=== PATIENT | male | born 1940 | race Caucasian/White ===

== ENCOUNTER 2017-04-06 09:34 | Inpatient (IN) | payer OTHER, MEDICARE ==
[2017-04-06] MEDS ORDERED: methylPREDNISolone SOD SUCCI 125 MG/2 ML VIAL IV STA (09:56)
[2017-04-06] MEDS ORDERED: IPRATROPIUM 0.5 MG/2.5 ML NEBU INHALATION STA (09:56)
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
[2017-04-06 10:54] LABS: Basophils # (A) 0.1 k/uL (0-0.2); Basophils % (A) 1 %; Eosinophils # (A) 0.1 k/uL (0-0.7); Eosinophils % (A) 1 %; HCT 49.8 % (39.0-53.0); HGB 16.1 gm/dL (13.0-17.5); Lymphocytes # (A) 1.5 k/uL (1.0-4.8); Lymphocytes % (A) 20 %; MCH 29.8 pg (25.0-35.0); MCHC 32.2 g/dL (31.0-37.0); MCV 92.3 fL (80.0-100.0); Mean Platelet Volume 9.8; Monocytes # (A) 0.7 k/uL (0-1.0); Monocytes % (A) 9 %; Neutrophils # (A) 4.9 k/uL (1.3-7.7); Neutrophils % (A) 67 %; RDW 13.3 % (11.5-15.5); WBC 7.3 k/uL (3.8-10.6)
[2017-04-06 11:07] LABS: INR 1.1 (<1.2); Partial Thromboplastin Time 22.4 sec (22.0-30.0); Prothrombin Time 10.8 sec (9.0-12.0)
[2017-04-06 11:12] LABS: ALT 31 U/L (21-72); AST 33 U/L (17-59); Albumin 4.3 g/dL (3.5-5.0); Alkaline Phosphatase 90 U/L (38-126); Anion Gap 14 mmol/L; Blood Urea Nitrogen 15 mg/dL (9-20); Carbon Dioxide 28 mmol/L (22-30); Chloride 100 mmol/L (98-107); Glucose 109 mg/dL (74-99); Potassium 4.9 mmol/L (3.5-5.1); Sodium 142 mmol/L (137-145); Total Bilirubin 0.5 mg/dL (0.2-1.3); Total Protein 7.6 g/dL (6.3-8.2)
--- NOTE | 2017-04-06 11:30 | XR ---
EXAMINATION TYPE: XR chest 1V portable DATE OF EXAM: 04/06/2017 HISTORY: sob. REFERENCE: NONE. FINDINGS: The lungs appear clear. The heart is at the upper limits of normal in size. There is eviden ce of right-sided pleural effusion which largely appears subpulmonic. IMPRESSION: RIGHT-SIDED SUBPULMONIC EFFUSION.
[2017-04-06 11:38] LABS: Creatine Kinase MB 2.3 ng/mL (0.0-2.4); Troponin I 0.018 ng/mL (0.000-0.034)
[2017-04-06] MEDS ORDERED: PNEUMONIA PROTOCOL UTILIZED 1 EACH MISC PO PRN (12:18)
[2017-04-06] MEDS ORDERED: PIPERACILLIN-TAZOBACTAM 3.375 GM in DEXTROSE/WATER 1 50ML.BAG IVPB STA (12:18)
[2017-04-06] MEDS ORDERED: LEVOFLOXACIN 750MG-D5W PMX 750 MG in DEXTROSE/WATER 1 150ML.BAG IVPB STA (12:18)
[2017-04-06] MEDS ORDERED: SODIUM CHLORIDE 0.9% 1,000 ML IV SCH (12:30)
[2017-04-06 15:26] VITALS: BMI 31.4
[2017-04-06] MEDS ORDERED: LORATADINE-PSEUDOEPH 5-120 MG 1 EACH TAB.ER.12H PO PRN (15:30)
[2017-04-06] MEDS ORDERED: ALPRAZolam 0.5 MG TAB PO PRN (15:30)
[2017-04-06] MEDS ORDERED: LOPERAMIDE 2 MG CAP PO PRN (15:30)
[2017-04-06] MEDS ORDERED: MAGNESIUM HYDROXIDE 2,400 MG/10 ML CUP PO PRN (15:30)
[2017-04-06] MEDS ORDERED: DIPHENOX-ATROP 2.5-0.025 MG 1 EACH TAB PO PRN (15:30)
[2017-04-06] MEDS ORDERED: IPRATROPIUM-ALBUTEROL 3 ML NEB INHALATION PRN (15:30)
[2017-04-06] MEDS ORDERED: guaiFENesin-DM 100-10MG/5ML 10 ML CUP PO PRN (15:30)
[2017-04-06] MEDS ORDERED: SENNOSIDES-DOCUSATE SODIUM 1 EACH TAB PO PRN (15:30)
[2017-04-06] MEDS ORDERED: ALBUTEROL NEBULIZED 2.5 MG/3 ML INHALATION PRN (15:30)
[2017-04-06] MEDS ORDERED: ACETAMINOPHEN TAB 325 MG TAB PO PRN (15:30)
[2017-04-06] MEDS: IPRATROPIUM-ALBUTEROL 3 ML NEB INHALATION SCH ×2 (15:53→20:36)
--- NOTE | 2017-04-06 16:53 | HP ---
HISTORY AND PHYSICAL CHIEF COMPLAINT: Shortness of breath and pneumonia. HISTORY OF PRESENT ILLNESS: This is another admission for this 76-year-old white male who is mentally incapacitated. He cannot give a history. He came in with congestion and it was felt that he probably had pneumonitis. Chest x-ray suggested a right subpulmonic effusion. He has significant wheezing, rhonchi and rales, and he may have aspirated. REVIEW OF SYSTEMS: Unobtainable. Past medical history, family history, and personal and social histories are similarly unobtainable. He is NOT ALLERGIC TO ANY MEDICATION. He takes: 1. Vitamin D. 2. Tylenol. 3. Xanax. 4. Budesonide-formotodine 160/4.5 two puffs b.i.d. 5. Albuterol. 6. Ipratropium bromide. 7. Various bowel medications, including Lomotil and milk of magnesia. 8. Phenobarbital. 9. Zocor. 10.Trazodone. PHYSICAL EXAMINATION: Temperature has not been obtained. Pulse is 89 and blood pressure is 157/69. Respirations are 22. In general he appeared to be slightly overweight and in some respiratory distress. Coarse rhonchi were heard. He had audible rhonchi in the room. Head, ears, eyes, nose, mouth and throat demonstrated a strabismus. There were no neck masses. Chest demonstrated complete rales, rhonchi and expiratory wheezing throughout. Cardiac exam demonstrated sinus rhythm and the abdomen was soft and protuberant. Extremities were normal. Neurologically he was not cognitively intact. IMPRESSION: 1. Bronchopneumonia. 2. Right pleural effusion. 3. Mental incapacitation. 4. ? seizure disorder. PLAN: 1. Bed rest. 2. IV fluids. 3. IV antibiotics. 4. Updrafts. 5. Pulmonology consult. MMODL / IJN: [id number] /
[2017-04-06] MEDS ORDERED: FUROSEMIDE 10 MG/ML 10 ML VIAL IV STA (20:29)
[2017-04-06] MEDS: ALBUTEROL NEBULIZED 2.5 MG/3 ML INHALATION SCH (20:36)
[2017-04-06] MEDS: SYMBICORT 160-4.5 MCG INHALER INHALATION SCH (20:36)
--- NOTE | 2017-04-06 20:49 | XR ---
EXAMINATION TYPE: XR chest 1V portable DATE OF EXAM: 04/06/2017 Comparison: Earlier today Clinical History: 76-year-old male with shortness of breath Findings: Heart upper limits of normal in size. Mild elongation thoracic aorta. Diffuse interstitial prominence and small right pleural effusion. Impression: 1. Possible mild CHF with pulmonary vascular congestion. 2. Small right effusion with adjacent atelectasis and/or consolidation. 3. Overall findings are unchanged.
[2017-04-06 22:04] LABS: Glucose,Whole Blood 163 mg/dL (75-99)
[2017-04-06] MEDS ORDERED: SCOPOLAMINE 1.5MG/72HR PATCH TRANSDERM SCH (22:30)
[2017-04-06 22:35] LABS: Basophils % (A) 0 %; Eosinophils # (A) 0.1 k/uL (0-0.7); Eosinophils % (A) 1 %; HCT 53.5 % (39.0-53.0); HGB 16.5 gm/dL (13.0-17.5); Lymphocytes # (A) 1.6 k/uL (1.0-4.8); Lymphocytes % (A) 10 %; MCHC 30.8 g/dL (31.0-37.0); MCV 94.1 fL (80.0-100.0); Mean Platelet Volume 7.8; Monocytes % (A) 6 %; Neutrophils # (A) 14.1 k/uL (1.3-7.7); Neutrophils % (A) 83 %; Platelet Count 245 k/uL (150-450); RBC 5.68 m/uL (4.30-5.90); RDW 13.2 % (11.5-15.5)
[2017-04-06 22:36] LABS: Anion Gap 17 mmol/L; Blood Urea Nitrogen 17 mg/dL (9-20); Carbon Dioxide 26 mmol/L (22-30); Chloride 98 mmol/L (98-107); Glucose 179 mg/dL (74-99); Magnesium 1.8 mg/dL (1.6-2.3); Potassium 4.3 mmol/L (3.5-5.1); Sodium 141 mmol/L (137-145)
[2017-04-06] MEDS: traZODone HCL 50 MG TAB PO SCH (22:38)
[2017-04-06] MEDS: ATORVASTATIN 20 MG TAB PO SCH (22:39)
[2017-04-06] MEDS: PHENobarbital 64.8 MG TAB PO SCH (22:53)
[2017-04-06] MEDS ORDERED: FUROSEMIDE 10 MG/ML 4 ML VIAL IV STA (23:56)
[2017-04-06] MEDS ORDERED: Magnesium Replacement Protocol 1 EACH MISC MISCELLANE PRN (23:57)
[2017-04-07] MEDS ORDERED: ACETAMINOPHEN IV (For NPO) 1,000 MG in EMPTY BAG 1 BAG IVPB SCH
[2017-04-07] MEDS ORDERED: ACETAMINOPHEN IV (For NPO) 1,000 MG in EMPTY BAG 1 BAG IVPB PRN (00:01)
[2017-04-07 00:08] LABS: Glucose,Whole Blood 137 mg/dL (75-99)
[2017-04-07] MEDS: MAGNESIUM SULFATE-D5W PMX 1 GM in DEXTROSE/WATER 1 100ML.BAG IVPB SCH ×2 (00:29→02:28)
[2017-04-07] MEDS: INSULIN ASPART 100 UNIT/ML 1 ML 10 ML VIAL SQ SCH ×5 (00:29→21:56)
[2017-04-07] MEDS: methylPREDNISolone SOD SUCCI 40 MG/ML 1 ML VIAL IV SCH ×3 (00:29→16:46)
[2017-04-07] MEDS: PIPERACILLIN-TAZOBACTAM 3.375 GM in DEXTROSE/WATER 1 50ML.BAG IVPB SCH ×3 (00:30→16:46)
[2017-04-07 05:25] LABS: Basophils % (A) 0 %; Eosinophils # (A) 0.1 k/uL (0-0.7); Eosinophils % (A) 1 %; HCT 49.9 % (39.0-53.0); HGB 15.6 gm/dL (13.0-17.5); Lymphocytes # (A) 1.3 k/uL (1.0-4.8); Lymphocytes % (A) 10 %; MCH 28.8 pg (25.0-35.0); MCHC 31.4 g/dL (31.0-37.0); Mean Platelet Volume 7.9; Monocytes # (A) 0.8 k/uL (0-1.0); Monocytes % (A) 6 %; Neutrophils # (A) 10.5 k/uL (1.3-7.7); Neutrophils % (A) 82 %; Platelet Count 193 k/uL (150-450); RBC 5.42 m/uL (4.30-5.90); RDW 13.2 % (11.5-15.5); WBC 12.8 k/uL (3.8-10.6)
[2017-04-07 05:37] LABS: Anion Gap 13 mmol/L; Blood Urea Nitrogen 19 mg/dL (9-20); Calcium 9.5 mg/dL (8.4-10.2); Carbon Dioxide 28 mmol/L (22-30); Chloride 97 mmol/L (98-107); Glucose 165 mg/dL (74-99); Magnesium 2.9 mg/dL (1.6-2.3); Potassium 4.3 mmol/L (3.5-5.1); Sodium 138 mmol/L (137-145)
[2017-04-07 06:09] LABS: Glucose,Whole Blood 138 mg/dL (75-99)
--- NOTE | 2017-04-07 06:38 | XR ---
EXAMINATION TYPE: XR chest 1V portable DATE OF EXAM: 04/07/2017 HISTORY: shortness of breath. REFERENCE: Previous study dated 04/06/2017. FINDINGS: Pulmonary vascular congestion has improved. Heart size is upper limits of normal. There is a small right-sided effusion with adjacent atelectasis. The left lung appears clear. IMPRESSION: MILD IMPROVEMENT IN THE DEGREE OF PULMONARY CONGESTION.
[2017-04-07] MEDS: IPRATROPIUM-ALBUTEROL 3 ML NEB INHALATION SCH ×4 (08:26→20:29)
[2017-04-07] MEDS: ALBUTEROL NEBULIZED 2.5 MG/3 ML INHALATION SCH ×2 (08:26→20:29)
[2017-04-07] MEDS: SYMBICORT 160-4.5 MCG INHALER INHALATION SCH ×2 (08:27→20:39)
[2017-04-07] MEDS: PANTOPRAZOLE 40 MG TABLET PO SCH (09:48)
[2017-04-07] MEDS: PHENobarbital 64.8 MG TAB PO SCH ×2 (09:57→22:33)
[2017-04-07] MEDS: SODIUM CHLORIDE 0.9% 500 ML IV SCH (10:49)
[2017-04-07] MEDS: FUROSEMIDE 10 MG/ML 2 ML VIAL IV SCH ×2 (10:49→21:56)
[2017-04-07 11:04] LABS: Appearance,Urine Turbid (Clear); Bacteria,Urine Rare /hpf; Bilirubin,Urine Negative (Negative); Blood,Urine Moderate (Negative); Budding Yeast,Urine Rare /hpf; Color,Urine Yellow; Glucose,Urine (UA) Negative (Negative); Ketones,Urine Negative (Negative); Leukocyte Esterase,Urine Small (Negative); Nitrite,Urine Negative (Negative); PH, Urine 5.5 (5.0-8.0); Protein,Urine 1+ (Negative); RBC,Urine 35 /hpf (0-5); Specific Gravity,Urine 1.027 (1.001-1.035); Urobilinogen,Urine <2.0 mg/dL (<2.0); WBC,Urine 19 /hpf (0-5)
[2017-04-07 11:38] LABS: Glucose,Whole Blood 129 mg/dL (75-99)
[2017-04-07] MEDS: LEVOFLOXACIN 750MG-D5W PMX 750 MG in DEXTROSE/WATER 1 150ML.BAG IVPB SCH (13:57)
[2017-04-07 16:53] LABS: Glucose,Whole Blood 105 mg/dL (75-99)
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
[2017-04-07 20:57] LABS: Glucose,Whole Blood 147 mg/dL (75-99)
[2017-04-07] MEDS: ATORVASTATIN 20 MG TAB PO SCH (21:56)
[2017-04-07] MEDS: traZODone HCL 50 MG TAB PO SCH (21:56)
[2017-04-08 06:50] LABS: Glucose,Whole Blood 117 mg/dL (75-99)
[2017-04-08] MEDS: INSULIN ASPART 100 UNIT/ML 1 ML 10 ML VIAL SQ SCH ×4 (07:25→21:14)
[2017-04-08] MEDS: IPRATROPIUM-ALBUTEROL 3 ML NEB INHALATION SCH ×4 (07:41→19:44)
[2017-04-08] MEDS: SYMBICORT 160-4.5 MCG INHALER INHALATION SCH ×2 (07:41→19:55)
[2017-04-08] MEDS: ALBUTEROL NEBULIZED 2.5 MG/3 ML INHALATION SCH ×3 (07:41→19:56)
[2017-04-08] MEDS: PIPERACILLIN-TAZOBACTAM 3.375 GM in DEXTROSE/WATER 1 50ML.BAG IVPB SCH ×4 (08:03→23:17)
[2017-04-08] MEDS: PANTOPRAZOLE 40 MG TABLET PO SCH (08:03)
[2017-04-08] MEDS: FUROSEMIDE 10 MG/ML 2 ML VIAL IV SCH (08:03)
[2017-04-08] MEDS: methylPREDNISolone SOD SUCCI 40 MG/ML 1 ML VIAL IV SCH ×2 (08:03)
[2017-04-08] MEDS: PHENobarbital 64.8 MG TAB PO SCH ×2 (08:08→21:16)
[2017-04-08 08:24] LABS: Basophils # (A) 0.1 k/uL (0-0.2); Basophils % (A) 1 %; Eosinophils % (A) 0 %; HCT 47.3 % (39.0-53.0); HGB 15.1 gm/dL (13.0-17.5); Lymphocytes # (A) 2.3 k/uL (1.0-4.8); Lymphocytes % (A) 23 %; MCH 29.4 pg (25.0-35.0); MCV 92.1 fL (80.0-100.0); Mean Platelet Volume 8.1; Monocytes # (A) 0.4 k/uL (0-1.0); Monocytes % (A) 5 %; Neutrophils # (A) 6.8 k/uL (1.3-7.7); Neutrophils % (A) 70 %; Platelet Count 212 k/uL (150-450); RBC 5.14 m/uL (4.30-5.90); RDW 13.2 % (11.5-15.5); WBC 9.8 k/uL (3.8-10.6)
[2017-04-08 08:54] LABS: Anion Gap 13 mmol/L; Blood Urea Nitrogen 26 mg/dL (9-20); Calcium 9.7 mg/dL (8.4-10.2); Carbon Dioxide 30 mmol/L (22-30); Chloride 95 mmol/L (98-107); Glucose 117 mg/dL (74-99); Magnesium 2.3 mg/dL (1.6-2.3); Potassium 4.2 mmol/L (3.5-5.1); Sodium 138 mmol/L (137-145)
--- NOTE | 2017-04-08 10:21 | XR ---
EXAMINATION TYPE: XR chest 1V portable DATE OF EXAM: 04/08/2017 Comparison: 04/07/2017 Clinical History: 76-year-old male shortness of breath Findings: Heart upper limits of normal in size. Atherosclerotic arch calcifications. There are small effusions with patchy bibasilar densities and interstitial prominence are Impression: 1. Relatively stable mild pulmonary vascular congestion. 2. Continued small effusions with patchy bibasilar atelectasis and/or consolidation.
[2017-04-08 11:57] LABS: Glucose,Whole Blood 116 mg/dL (75-99)
[2017-04-08] MEDS: LEVOFLOXACIN 750MG-D5W PMX 750 MG in DEXTROSE/WATER 1 150ML.BAG IVPB SCH (12:58)
[2017-04-08] MEDS: SODIUM CHLORIDE 0.9% 500 ML IV SCH (12:59)
--- NOTE | 2017-04-08 14:05 | P.PN ---
Subjective Progress Note Date: 04/08/17 Principal diagnosis: acute hypoxic rest or a failure, multifactorial, secondary to mild CHF, acute exacerbation of COPD, tracheobronchitis, pleural effusions, and aspiration pneumonia This is a 76-year-old white male with remote history of closed head injury, patient is mentally incapacitated, brought in by his caregiver complaining of few days' history of increased shortness of breath, cough, and congestion. The patient himself is a very poor historian, and he is definitely mentally challenged. Workup in the ER showed abnormal chest x-ray suggestive of right sided pleural effusion, and mild interstitial edema. Patient was admitted with the impression of pneumonia, however as he was admitted to the regular medical floor, shortly after, his condition deteriorated, patient was transferred to the ICU, received Lasix, and within a few hours his clinical status dramatically improved. His chest x-ray even improved, and by the time I evaluated the patient early this morning, he was feeling much better, and saturating nicely on few liters nasal cannula. The patient on diuretics, kept him on antibiotics, and recommended transferred back to a regular medical floor. The patient again could not give any history, but his caregiver is sitting next to him, and most of the information was obtained from her. His CBC was relatively unremarkable, basic metabolic profile was also normal. His urinalysis showed small amount of bacteriuria, hematuria, and bacteriuria. Influenza screening was negative. Troponin was 0.085 and BNP was 336. On 04/08/2017 patient seen in follow-up. Resting comfortably in bed, with his caregiver at the bedside. Patient is a poor historian, due to his history of closed head injury. He is awake, alert, there caregiver states he is been yelling out at times, which is his baseline and overall seems to be more responsive to interaction. his FiO2 is currently down to 5 L per high flow nasal cannula. a since last febrile episode was on 04/07/2017 at midnight with a temp of 100.9F, no febrile episodes since then. His other vitals remained stable.his urine, sputum and blood cultures remain negative.patient remains on Levaquin,Zosyn, IV Solu-Medrol, IV Lasix, nebulized treatments. His lung sounds are positive for scattered wheezes and rhonchi. His repeat chest x-ray from this morning shows relatively stable mild pulmonary vessel congestion, and continue small pleural effusions with patchy bibasilar atelectasis and/or consolidation. Objective - Vital Signs Vital signs: Vital Signs Temp 97.2 F L 04/08/17 06:39 Pulse 84 04/08/17 11:57 Resp 20 04/08/17 08:00 BP 106/64 04/08/17 06:39 Pulse Ox 93 L 04/08/17 06:39 Intake & Output 04/07/17 04/08/17 04/08/17 18:59 06:59 18:59 Intake Total 590 1441 Output Total 135 Balance 455 1441 Intake: IV 40 Sodium Chloride 0.9% 1, 40 000 ml @ 100 mls/hr IV . Q10H [facility] Rx#:[id number] Intake, IV Titration 70 Amount Piperacillin-Tazobactam 3 50 .375 gm In Dextrose/Water 1 50ml.bag @ 12.5 mls/hr IVPB Q8HR [facility] Rx#: [id number] Sodium Chloride 0.9% 500 20 ml @ 20 mls/hr IV .Q24H [facility] Rx#:[id number] Oral 480 1440 Blood Product 1 Output: Urine 135 Other: Voiding Method Diaper Diaper Diaper # Voids 2 3 4 - Exam General appearance: alert, in no apparent distress Head exam: Atraumatic, normocephalic all of the patient had previous closed head injury decades ago. Eye exam: PERRLA, EOMI, no icterus. ENT exam: Moist mucous membranes, no neck masses, no JVD, no stridor. Neck exam: No neck masses, no stridor, no lymphadenopathy Respiratory exam: scattered wheezes, and rhonchi Cardiovascular Exam: Normal S1 and S2, no gallops. GI/Abdominal exam: Soft nontender no megaly no rebound no guarding Extremities exam: No clubbing, no edema, no cyanosis. Back exam: Present: normal inspection Neurological exam: Patient is clearly mentally challenged, does not comprehend well, does not follow instructions, otherwise no gross focal deficit. Moves all extremities properly. Psychiatric exam: Normal mood and affect, abnormal mental status examination Skin exam: : No rashes. - Labs CBC & Chem 7: 04/08/17 07:36 04/08/17 07:36 Labs: Abnormal Lab Results - Last 24 Hours (Table) 04/07/17 04/07/17 04/08/17 Range/Units 16:44 20:56 06:39 Chloride (98-107) mmol/L BUN (9-20) mg/dL Glucose (74-99) mg/dL POC Glucose (mg/dL) 105 H 147 H 117 H (75-99) mg/dL 04/08/17 04/08/17 Range/Units 07:36 11:55 Chloride 95 L (98-107) mmol/L BUN 26 H (9-20) mg/dL Glucose 117 H (74-99) mg/dL POC Glucose (mg/dL) 116 H (75-99) mg/dL Microbiology - Last 24 Hours (Table) 04/07/17 01:30 Gram Stain - Preliminary Sputum Sputum Culture - Preliminary 04/07/17 10:16 Urine Culture - Preliminary Urine,Catheterized 04/06/17 10:42 Blood Culture - Preliminary Blood No Growth after 24 hours Assessment and Plan Plan: Assessment: 1 Acute hypoxic respiratory failure, multifactorial, secondary to mild congestive heart failure, acute exacerbation of COPD, purulent tracheobronchitis , bilateral pleural effusions, possibility of aspiration pneumonia is not entirely ruled out based on the clinical history. 2 multiple medical problems including history of closed head injury, seizure disorder, mental incapacitation. Recommendation: Continue diuretics, continue empiric antibiotics. Clinically patient is improving, FiO2 is being weaned down, is currently down to 5 L per high flow nasal cannula. Continue to wean. Patient is more awake, alert and more interactive. Diuresing well with diuretics. Fluid net balance is hard to estimate as the patient is incontinent of urine. Sputum, urine and blood cultures remain negative so far.continue IV steroids, continue nebulized treatments. We will continue to follow with you I performed a history & physical examination of the patient and discussed their management with my nurse practitioner, Kaylah De Jesus. I reviewed the nurse practitioner's note and agree with the documented findings and plan of care. Lung sounds are positive for scattered wheezes. The findings and the impression was discussed with the patient. I attest to the documentation by the nurse practitioner. Time with Patient: Less than 30
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
--- NOTE | 2017-04-08 14:35 | PN ---
PROGRESS NOTE DATE OF SERVICE: 04/07/2017. CHIEF COMPLAINT: Pneumonitis, sepsis, and aspiration. HISTORY OF PRESENT ILLNESS: This gentleman is definitely doing better. During the night the A team was called when he got into acute respiratory distress with tachycardia, cyanosis, and congestion. He responded to Lasix and updrafts and was doing somewhat better. He had been moved to ICU, but now is back. PHYSICAL EXAM: He remains very agitated. He is awake. He has extensive rales and rhonchi bilaterally, but he does sound a little bit better than he did 24 hours ago. IMPRESSION: 1. Aspiration pneumonia. 2. Mental incapacitation. 3. Probable sepsis. PLAN: Continue with the IV fluids, antibiotics and updrafts. MMODL / IJN: [id number] /
[2017-04-08 17:02] LABS: Glucose,Whole Blood 118 mg/dL (75-99)
[2017-04-08] MEDS: methylPREDNISolone 4 MG TAB TAPER PO SCH (17:03)
[2017-04-08] MEDS: FUROSEMIDE 20 MG TAB PO SCH (17:04)
--- NOTE | 2017-04-08 17:32 | PN ---
PROGRESS NOTE CHIEF COMPLAINT: Pneumonitis and mental incapacitation. HISTORY OF PRESENT ILLNESS: This gentleman remains very agitated. His chest is clearing. PHYSICAL EXAM: His chest definitely improved. There are fewer rales and rhonchi and he is fully awake and alert. His color is good. Cardiac exam is normal. IMPRESSION: 1. Bronchial pneumonia. 2. Aspiration. 3. Mental incapacitation. PLAN: Continue with current program. MMODL / IJN: [id number] /
[2017-04-08 20:29] LABS: Glucose,Whole Blood 140 mg/dL (75-99)
[2017-04-08] MEDS: ATORVASTATIN 20 MG TAB PO SCH (21:13)
[2017-04-08] MEDS: traZODone HCL 50 MG TAB PO SCH (21:14)
--- NOTE | 2017-04-08 23:15 | XR ---
EXAMINATION TYPE: XR chest 2V DATE OF EXAM: 04/08/2017 COMPARISON: 04/08/2017 HISTORY: 76-year-old male, follow-up pneumonia TECHNIQUE: AP and lateral views FINDINGS: Heart is borderline enlarged. Somewhat low volumes with crowded vascular markings. Peribronchial cuf fing and interstitial prominence is present throughout. Focal patchy posterior basilar opacity was se en on the lateral view. Some patchy medial right basilar opacity shows improvement from prior exam. IMPRESSION: 1. Improving aeration at the medial right base but with persistent opacity posteriorly. Residual atel ectasis or pneumonia is considered. 2. Interstitial prominence and bronchial wall thickening could represent background of bronchitis or chronic asthma. Correlate with patient's fluid status to exclude mild pulmonary vascular congestion. 3. Hypoventilatory changes.
[2017-04-09 07:03] LABS: Glucose,Whole Blood 96 mg/dL (75-99)
[2017-04-09 07:51] VITALS: RESP 18
[2017-04-09] MEDS: SYMBICORT 160-4.5 MCG INHALER INHALATION SCH (08:24)
[2017-04-09] MEDS: IPRATROPIUM-ALBUTEROL 3 ML NEB INHALATION SCH ×3 (08:25→15:16)
[2017-04-09] MEDS: INSULIN ASPART 100 UNIT/ML 1 ML 10 ML VIAL SQ SCH ×2 (08:58→12:13)
[2017-04-09] MEDS: PANTOPRAZOLE 40 MG TABLET PO SCH (08:59)
[2017-04-09] MEDS: PIPERACILLIN-TAZOBACTAM 3.375 GM in DEXTROSE/WATER 1 50ML.BAG IVPB SCH ×2 (09:00→16:16)
[2017-04-09] MEDS: FUROSEMIDE 20 MG TAB PO SCH (09:00)
[2017-04-09] MEDS: methylPREDNISolone 4 MG TAB TAPER PO SCH (09:00)
[2017-04-09] MEDS: PHENobarbital 64.8 MG TAB PO SCH (09:11)
[2017-04-09] MEDS: SODIUM CHLORIDE 0.9% 500 ML IV SCH (09:11)
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
--- NOTE | 2017-04-09 11:10 | ECHOF ---
Referral Reason:elevated troponin MEASUREMENTS -------- HEIGHT: 180.3 cm WEIGHT: 88.9 kg BP: 106/64 RVIDd: 3.9 cm (< 3.3) IVSd: 1.1 cm (0.6 - 1.1) LVIDd: 4.4 cm (3.9 - 5.3) LVPWd: 1.1 cm (0.6 - 1.1) IVSs: 1.5 cm LVIDs: 2.9 cm LVPWs: 1.4 cm RAP: 5.00 mmHg RVSP: 18.45 mmHg FINDINGS -------- Sinus rhythm. This was a technically difficult study with suboptimal views. The left ventricular size is normal. There is mild concentric left ventricular hypertrophy. Overa ll left ventricular systolic function is normal with, an EF between 55 - 60 %. The right ventricle is moderately enlarged. The global wall thickness of the right ventricle is mil dly enlarged. The left atrial size is normal. The right atrium is normal in size. 3ml of Lumason was utilized for enhancement of images. The aortic valve was not well visualized. There is no evidence of aortic regurgitation. There is no evidence of aortic stenosis. The mitral valve is normal. There is trace to mild mitral regurgitation. Trace tricuspid regurgitation present. Right ventricular systolic pressure is normal at < 35 mmHg. There is no evidence of pulmonary hypertension. The pulmonic valve was not well visualized. The aortic root size is normal. Normal inferior vena cava with normal inspiratory collapse consistent with estimated right atrial pre ssure of 5 mmHg. There is a small pericardial effusion is located near the right ventricle. CONCLUSIONS -------- 1. Sinus rhythm. 2. This was a technically difficult study with suboptimal views. 3. The left ventricular size is normal. 4. There is mild concentric left ventricular hypertrophy. 5. Overall left ventricular systolic function is normal with, an EF between 55 - 60 %. 6. The global wall thickness of the right ventricle is mildly enlarged. 7. The left atrial size is normal. 8. 3ml of Lumason was utilized for enhancement of images. 9. The aortic valve was not well visualized. 10. There is no evidence of aortic regurgitation. 11. There is no evidence of aortic stenosis. 12. There is trace to mild mitral regurgitation. 13. Trace tricuspid regurgitation present. 14. Right ventricular systolic pressure is normal at < 35 mmHg. 15. There is no evidence of pulmonary hypertension. 16. The pulmonic valve was not well visualized. 17. The aortic root size is normal. 18. There is a small pericardial effusion is located near the right ventricle. POLICY ADVISER: Santo García RDCS
[2017-04-09 12:11] LABS: Glucose,Whole Blood 130 mg/dL (75-99)
--- NOTE | 2017-04-09 13:31 | P.PN ---
Subjective Progress Note Date: 04/09/17 Principal diagnosis: acute hypoxic rest or a failure, multifactorial, secondary to mild CHF, acute exacerbation of COPD, tracheobronchitis, pleural effusions, and aspiration pneumonia This is a 76-year-old white male with remote history of closed head injury, patient is mentally incapacitated, brought in by his caregiver complaining of few days' history of increased shortness of breath, cough, and congestion. The patient himself is a very poor historian, and he is definitely mentally challenged. Workup in the ER showed abnormal chest x-ray suggestive of right sided pleural effusion, and mild interstitial edema. Patient was admitted with the impression of pneumonia, however as he was admitted to the regular medical floor, shortly after, his condition deteriorated, patient was transferred to the ICU, received Lasix, and within a few hours his clinical status dramatically improved. His chest x-ray even improved, and by the time I evaluated the patient early this morning, he was feeling much better, and saturating nicely on few liters nasal cannula. The patient on diuretics, kept him on antibiotics, and recommended transferred back to a regular medical floor. The patient again could not give any history, but his caregiver is sitting next to him, and most of the information was obtained from her. His CBC was relatively unremarkable, basic metabolic profile was also normal. His urinalysis showed small amount of bacteriuria, hematuria, and bacteriuria. Influenza screening was negative. Troponin was 0.085 and BNP was 336. On 04/08/2017 patient seen in follow-up. Resting comfortably in bed, with his caregiver at the bedside. Patient is a poor historian, due to his history of closed head injury. He is awake, alert, there caregiver states he is been yelling out at times, which is his baseline and overall seems to be more responsive to interaction. his FiO2 is currently down to 5 L per high flow nasal cannula. a since last febrile episode was on 04/07/2017 at midnight with a temp of 100.9F, no febrile episodes since then. His other vitals remained stable.his urine, sputum and blood cultures remain negative.patient remains on Levaquin,Zosyn, IV Solu-Medrol, IV Lasix, nebulized treatments. His lung sounds are positive for scattered wheezes and rhonchi. His repeat chest x-ray from this morning shows relatively stable mild pulmonary vessel congestion, and continue small pleural effusions with patchy bibasilar atelectasis and/or consolidation. On 04/09/2017 patient seen in follow-up. Patient's becoming restless, but in no acute distress, caregiver is at the bedside. Patient is removing his oxygen , was at 5 L per nasal cannula, room air pulse ox was 86%. He was placed on 2 L per nasal cannula. Continues on IV diuresis, fluid net balance is hard to estimate, patient is incontinent of urine. Lung sounds are positive for scattered wheezes, but this is improved compared to previous exams. Echocardiogram from 04/08/2017 showed normal left ventricular systolic function with EF of 55-60%, as no evidence of pulmonary hypertension, right ventricular systolic pressure is less than 35 mmHg. Patient remains afebrile, vital signs are within normal limits. Patient did pass his swallow evaluation at the bedside yesterday, however related to his impaired cognition, his caregiver states he requires close supervision to avoid him putting too much food in his mouth at one time. Patient continues on Zosyn, yesterday with switched his steroids to Medrol Dosepak, and switched his IV Lasix to oral Lasix. No other acute events overnight, from pulmonary standpoint patient could be discharged home back to the [facility] today, on oral Augmentin, Medrol Dosepak, and small dose of oral Lasix. Objective - Vital Signs Vital signs: Vital Signs Temp 98.8 F 04/09/17 07:00 Pulse 84 04/09/17 12:28 Resp 18 04/09/17 07:00 BP 121/80 04/09/17 07:00 Pulse Ox 91 L 04/09/17 12:12 Intake & Output 04/08/17 04/09/17 04/09/17 18:59 06:59 18:59 Intake Total 1920 Balance 192 Weight 89 kg Intake: Oral 1920 Blood Product 1 Other: Voiding Method Diaper Diaper # Voids 1 2 - Exam General appearance: alert, in no apparent distress Head exam: Atraumatic, normocephalic all of the patient had previous closed head injury decades ago. Eye exam: PERRLA, EOMI, no icterus. ENT exam: Moist mucous membranes, no neck masses, no JVD, no stridor. Neck exam: No neck masses, no stridor, no lymphadenopathy Respiratory exam: scattered wheezes, and rhonchi Cardiovascular Exam: Normal S1 and S2, no gallops. GI/Abdominal exam: Soft nontender no megaly no rebound no guarding Extremities exam: No clubbing, no edema, no cyanosis. Back exam: Present: normal inspection Neurological exam: Patient is clearly mentally challenged, does not comprehend well, does not follow instructions, otherwise no gross focal deficit. Moves all extremities properly. Psychiatric exam: Normal mood and affect, abnormal mental status examination Skin exam: : No rashes. - Labs CBC & Chem 7: 04/08/17 07:36 04/08/17 07:36 Labs: Abnormal Lab Results - Last 24 Hours (Table) 04/08/17 04/08/17 04/09/17 Range/Units 16:59 20:27 12:09 POC Glucose (mg/dL) 118 H 140 H 130 H (75-99) mg/dL Microbiology - Last 24 Hours (Table) 04/07/17 01:30 Gram Stain - Final Sputum Sputum Culture - Final 04/07/17 10:16 Urine Culture - Final Urine,Catheterized 04/06/17 10:42 Blood Culture - Preliminary Blood No Growth after 48 hours Assessment and Plan Plan: Assessment: 1 Acute hypoxic respiratory failure, multifactorial, secondary to mild congestive heart failure, acute exacerbation of COPD, purulent tracheobronchitis , bilateral pleural effusions, possibility of aspiration pneumonia is not entirely ruled out based on the clinical history. Improved, patient is currently down to 2 L per nasal cannula, after IV diuresis, nebulized treatments , and antibiotics 2 multiple medical problems including history of closed head injury, seizure disorder, mental incapacitation. Recommendation: Patient continues to improve, he did pass his swallow evaluation yesterday, however still requires close supervision during meals to avoid patient putting too much food in his mouth 1 time. Vital signs are stable, lung sounds are still positive for some rhonchi and scattered wheezing, overall however improved since admission. Patient did desaturate to 86% on room air, arrangements will be made for home oxygen, he will go home on 2 L per nasal cannula. From pulmonary standpoint he is stable for discharge back to the [facility] today, he will need a small dose of Lasix 20 mg daily on a regular basis, Medrol Dosepak, and Augmentin for 7 more days. I performed a history & physical examination of the patient and discussed their management with my nurse practitioner, Kaylah De Jesus. I reviewed the nurse practitioner's note and agree with the documented findings and plan of care. Lung sounds are positive for scattered wheezes and rhonchi. The findings and the impression was discussed with the patient. I attest to the documentation by the nurse practitioner. Time with Patient: Less than 30
[2017-04-09 15:56] VITALS: BP 111/66; PULSE 85; TEMP 97.2
[2017-04-09] MEDS: LEVOFLOXACIN 750MG-D5W PMX 750 MG in DEXTROSE/WATER 1 150ML.BAG IVPB SCH (16:16)
--- NOTE | 2017-04-09 21:48 | DS ---
DISCHARGE SUMMARY CHIEF COMPLAINT: Pneumonitis. HISTORY OF PRESENT ILLNESS AND PHYSICAL EXAM: The details of this man's history and physical can be found in the initial workup. LABORATORY STUDIES: While he was in a hospital he had laboratory studies, details of which can be found in the laboratory section of his chart. COURSE IN HOSPITAL: After admission, he was placed on bedrest, started on intravenous fluids and updrafts. In the middle of night, he probably aspirated and became tachypneic, cyanotic and tachycardic. A team was called and after updrafts and IV fluids, he started to turn the corner. He was sent to ICU, but then was able to return to the floor and did well enough that he got back to baseline and it was felt that he could go back to the [facility] on the . FINAL DIAGNOSES: 1. Aspiration pneumonia. 2. Acute hypoxic episode. 3. Mental incapacitation. OPERATIONS: None. CONSULTATIONS: None. He is improved. OMER / JOHN: [id number] /
--- NOTE | 2017-04-15 09:57 | CDI ---
Last Revision, January 2017 Documentation Clarification Form Date: 04/15/2017 9:43:00 AM From: Crissy Salguero Carol Ann Patino, Load Blocker between 8:30 am & 5 pm Memo Admit Date: 04/06/2017 12:18:00 PM Patient Name: Epi Flores Visit Number: [id number] Discharge Date: 04/09/17 ATTENTION: The Clinical Documentation Specialists (CDI) and [facility] Coding Staff appreciate your assistance in clarifying documentation. Please respond to the clarification below the line at the bottom and electronically sign. The CDI & [facility] Coding staff will review the response and follow-up if needed. Please note: Queries are made part of the Legal Health Record. If you have any questions, please contact the author of this message via ITS. Dr. Kim Vernon/Ning Perez Documentation in cardiology consult states: Mildly elevated troponin, secondary to a type II event History/Risk Factors: CHF, Abnormal: Troponin I on 04/06 - 0.085 Treatment: 2 D Echo In your professional opinion, can you please clarify if the type II event is: Type II ME Abnormal troponin Other, please specify Unable to determine Please continue to document in your progress notes and discharge summary in order to capture severity of illness and risk of mortality. Include clinical findings that support your diagnosis. MTDD
--- NOTE | 2017-04-15 09:58 | CDI ---
Last Revision, January 2017 Documentation Clarification Form Date: 04/15/2017 9:09:00 AM From: Crissy Salguero Carol Ann Patino, Environmental Issues Instructor between 8:30 am & 5 pm MRocky Admit Date: 04/06/2017 12:18:00 PM Patient Name: Epi Flores Visit Number: [id number] Discharge Date: 04/09/17 ATTENTION: The Clinical Documentation Specialists (CDI) and [facility] Coding Staff appreciate your assistance in clarifying documentation. Please respond to the clarification below the line at the bottom and electronically sign. The CDI & [facility] Coding staff will review the response and follow-up if needed. Please note: Queries are made part of the Legal Health Record. If you have any questions, please contact the author of this message via ITS. Dr. Josefina Stout/Ning Perez Patent admitted with aspiraton pneumonia. He was found to have mild CHF with pulmonary vascular congestion and small right pleural effusion (CXR 04/06) Upon deterioraton was transferred to ICU where hew was given IV Lasix 20 mg Q 12hr. BNP: 04/06- 289, 336 Echocardiogram Results: Left ventricular systolic function is nl, EF between 55- 60-% In your professional opinion, can you please clarify the acuity and type of CHF if known? Systolic Heart Failure: Acute Chronic Acute on Chronic Diastolic Heart Failure: Acute Chronic Acute on Chronic Systolic & Diastolic Heart Failure: Acute Chronic Acute on Chronic Heart Failure Unable to Determine Other, please specify Please continue to document in your progress notes and discharge summary in order to capture severity of illness and risk of mortality. Include clinical findings that support your diagnosis. This patient has no history of heart failure and was determined to not have been in heart failure during this admission. DARRELLD
== END 2017-04-09 16:58 | disposition home or self-care (01) | DRG 177 ==
LOC: EC 09:34 → 4MS4W 12:18 → 6ICU 21:43 → 4MS4W 04-07 11:32
PROVIDERS: ADMIT Family Medicine; ATTEND Family Medicine
DX: J69.0 Pneumonitis due to inhalation of food and vomit (principal); J96.01 Acute respiratory failure with hypoxia; A41.9 Sepsis, unspecified organism; J44.1 Chronic obstructive pulmonary disease with (acute) exacerbation; Z66 Do not resuscitate; G40.909 Epilepsy, unspecified, not intractable, without status epilepticus; K21.9 Gastro-esophageal reflux disease without esophagitis; E78.5 Hyperlipidemia, unspecified; R32 Unspecified urinary incontinence; Z79.51 Long term (current) use of inhaled steroids; Z79.899 Other long term (current) drug therapy; Z87.820 Personal history of traumatic brain injury; Z99.3 Dependence on wheelchair; Z87.891 Personal history of nicotine dependence
CPT/HCPCS: 36415; 71045; 71046; 80048; 80053; 81001; 82550; 82553; 83605; 83735; 83880; 84100; 84484; 85025; 85379; 85610; 85730; 87040; 87070; 87086; 87205; 87502; 93005; 93306; 94640; 96365; 96375; 99291

== ENCOUNTER → 2017-12-24 | Outpatient (CLI) | payer MEDICARE | END | disposition home or self-care (01) | LOC: RADCTMAIN 13:19 | PROVIDERS: ATTEND Internal Medicine Sleep Medicine | DX: Z53.9 Procedure and treatment not carried out, unspecified reason (principal) ==

== ENCOUNTER 2018-03-27 19:26 | Emergency (ER) | payer OTHER, MEDICARE ==
[2018-03-27 19:33] VITALS: BP 128/79; RESP 20; TEMP 97.7
[2018-03-27] MEDS ORDERED: IPRATROPIUM-ALBUTEROL 3 ML NEB INHALATION STA (19:56)
[2018-03-27 20:23] VITALS: PULSE 92
[2018-03-27 20:30] LABS: Appearance,Urine Clear (Clear); Bacteria,Urine Rare /hpf; Bilirubin,Urine Negative (Negative); Blood,Urine Small (Negative); Color,Urine Yellow; Glucose,Urine (UA) Negative (Negative); Ketones,Urine Negative (Negative); Leukocyte Esterase,Urine Large (Negative); Mucus,Urine Rare /hpf; Nitrite,Urine Negative (Negative); Protein,Urine Negative (Negative); RBC,Urine 46 /hpf (0-5); Specific Gravity,Urine 1.016 (1.001-1.035); Squamous Epithelial Cell,Urine <1 /hpf (0-4); Urobilinogen,Urine <2.0 mg/dL (<2.0)
--- NOTE | 2018-03-27 20:41 | XR ---
EXAMINATION TYPE: XR chest 1V DATE OF EXAM: 03/27/2018 COMPARISON: 04/08/2017 HISTORY: Dehydration. Dysuria. TECHNIQUE: Single frontal view of the chest is obtained. FINDINGS: There is patchy atelectasis at the lung bases. Heart size is normal. There is no heart malik lure. There is poor inspiration. IMPRESSION: Atelectasis at the lung bases increased compared to last exam.
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
== END 2018-03-27 21:14 | disposition home or self-care (01) ==
LOC: EC 19:26
DX: R33.9 Retention of urine, unspecified (principal); R05 Cough; R09.89 Other specified symptoms and signs involving the circulatory and respiratory systems; K21.9 Gastro-esophageal reflux disease without esophagitis; J44.9 Chronic obstructive pulmonary disease, unspecified; E78.5 Hyperlipidemia, unspecified; Z79.51 Long term (current) use of inhaled steroids; Z79.899 Other long term (current) drug therapy; Z87.891 Personal history of nicotine dependence
CPT/HCPCS: 51702; 51798; 71045; 81001; 87077; 87086; 87186; 94640; 99284

== ENCOUNTER 2018-10-15 19:57 | Inpatient (IN) | payer MEDICARE ==
--- NOTE | 2018-10-15 20:36 | XR ---
EXAMINATION TYPE: XR chest 1V portable DATE OF EXAM: 10/15/2018 COMPARISON: 03/27/2018 INDICATION: Shortness of breath TECHNIQUE: Single frontal view of the chest is obtained. FINDINGS: The heart size is normal. The pulmonary vasculature is normal. Elevation of the right diaphragm laterally. A small pleural effusion may be present. Atelectasis may be present. IMPRESSION: 1. Elevation of the lateral right diaphragm which may be related to atelectasis and effusion. Follow- up is recommended.
[2018-10-15 20:43] LABS: Basophils # (A) 0.1 k/uL (0-0.2); Basophils % (A) 1 %; Eosinophils # (A) 0.3 k/uL (0-0.7); Eosinophils % (A) 2 %; HCT 48.9 % (39.0-53.0); HGB 16.1 gm/dL (13.0-17.5); Lymphocytes # (A) 2.8 k/uL (1.0-4.8); Lymphocytes % (A) 16 %; MCH 31.1 pg (25.0-35.0); MCHC 32.9 g/dL (31.0-37.0); MCV 94.5 fL (80.0-100.0); Monocytes # (A) 0.9 k/uL (0-1.0); Monocytes % (A) 5 %; Neutrophils # (A) 12.9 k/uL (1.3-7.7); Neutrophils % (A) 75 %; Platelet Count 264 k/uL (150-450); RBC 5.18 m/uL (4.30-5.90); RDW 13.4 % (11.5-15.5); WBC 17.1 k/uL (3.8-10.6)
[2018-10-15 20:48] LABS: ALT 28 U/L (21-72); AST 25 U/L (17-59); African American GFR (CKD) >90 (>60 ml/min/1.73 sqM); Albumin 4.8 g/dL (3.5-5.0); Alkaline Phosphatase 96 U/L (38-126); Anion Gap 14 mmol/L; Blood Urea Nitrogen 19 mg/dL (9-20); Calcium 9.8 mg/dL (8.4-10.2); Carbon Dioxide 26 mmol/L (22-30); Chloride 101 mmol/L (98-107); Glucose 137 mg/dL (74-99); Potassium 4.4 mmol/L (3.5-5.1); Sodium 141 mmol/L (137-145); Total Bilirubin 0.4 mg/dL (0.2-1.3); Total Protein 8.3 g/dL (6.3-8.2)
[2018-10-15] MEDS ORDERED: diphenhydrAMINE 50 MG/ML 1 ML VIAL IVP STA (20:51)
[2018-10-15 20:53] LABS: Partial Thromboplastin Time 27.1 sec (22.0-30.0); Prothrombin Time 10.3 sec (9.0-12.0)
[2018-10-15] MEDS ORDERED: LEVOFLOXACIN 750MG-D5W PMX 750 MG in DEXTROSE/WATER 1 150ML.BAG IVPB STA (21:24)
[2018-10-15] MEDS ORDERED: VANCOMYCIN 1,000 MG in SODIUM CHLORIDE 0.9% 250 ML IVPB STA (21:24)
[2018-10-15] MEDS ORDERED: VANCOMYCIN 1,500 MG in SODIUM CHLORIDE 0.9% 250 ML IVPB STA (21:35)
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
[2018-10-15] MEDS ORDERED: NALOXONE 0.4 MG/ML 1 ML VIAL IV PRN (22:28)
[2018-10-15] MEDS ORDERED: guaiFENesin-DM 100-10MG/5ML 10 ML CUP PO PRN (22:32)
[2018-10-15] MEDS ORDERED: LORATADINE-PSEUDOEPH 5-120 MG 1 EACH TAB.ER.12H PO PRN (22:32)
[2018-10-15] MEDS ORDERED: ACETAMINOPHEN TAB 325 MG TAB PO PRN (22:32)
[2018-10-15 23:27] LABS: Appearance,Urine Clear (Clear); Bilirubin,Urine Negative (Negative); Blood,Urine Negative (Negative); Color,Urine Yellow; Glucose,Urine (UA) Negative (Negative); Ketones,Urine Negative (Negative); Leukocyte Esterase,Urine Negative (Negative); Nitrite,Urine Negative (Negative); PH, Urine 5.5 (5.0-8.0); Protein,Urine Trace (Negative); Specific Gravity,Urine 1.027 (1.001-1.035); Urobilinogen,Urine <2.0 mg/dL (<2.0)
[2018-10-16 00:45] VITALS: BMI 33.7
[2018-10-16] MEDS: PHENobarbital 64.8 MG TAB PO SCH ×3 (00:54→20:19)
[2018-10-16] MEDS: PANTOPRAZOLE 40 MG TABLET PO SCH (06:54)
[2018-10-16] MEDS: BUDESONIDE 0.5 MG/2 ML NEBU INHALATION SCH ×2 (09:33→20:55)
[2018-10-16] MEDS: FUROSEMIDE 40 MG TAB PO SCH (09:57)
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
[2018-10-16 10:15] LABS: African American GFR (CKD) >90 (>60 ml/min/1.73 sqM); Albumin 3.8 g/dL (3.5-5.0); Anion Gap 8 mmol/L; Blood Urea Nitrogen 17 mg/dL (9-20); Calcium 9.4 mg/dL (8.4-10.2); Carbon Dioxide 28 mmol/L (22-30); Chloride 103 mmol/L (98-107); Glucose 107 mg/dL (74-99); Sodium 139 mmol/L (137-145); Total Bilirubin 0.8 mg/dL (0.2-1.3); Total Protein 6.9 g/dL (6.3-8.2)
[2018-10-16 10:17] LABS: ALT 24 U/L (21-72); AST 23 U/L (17-59); Alkaline Phosphatase 57 U/L (38-126); Potassium 4.6 mmol/L (3.5-5.1)
[2018-10-16 10:57] LABS: Basophils # (A) 0.1 k/uL (0-0.2); Basophils % (A) 1 %; Eosinophils # (A) 0.1 k/uL (0-0.7); Eosinophils % (A) 0 %; HCT 44.8 % (39.0-53.0); HGB 14.8 gm/dL (13.0-17.5); Lymphocytes # (A) 2.3 k/uL (1.0-4.8); Lymphocytes % (A) 9 %; MCH 31.1 pg (25.0-35.0); MCHC 33.1 g/dL (31.0-37.0); MCV 94.1 fL (80.0-100.0); Mean Platelet Volume 8.7; Monocytes # (A) 1.5 k/uL (0-1.0); Monocytes % (A) 6 %; Neutrophils # (A) 21.9 k/uL (1.3-7.7); Neutrophils % (A) 84 %; Platelet Count 210 k/uL (150-450); RBC 4.76 m/uL (4.30-5.90); RDW 14.2 % (11.5-15.5)
[2018-10-16] MEDS ORDERED: VANCOMYCIN 1,500 MG in SODIUM CHLORIDE 0.9% 250 ML IVPB SCH (11:00)
--- NOTE | 2018-10-16 14:50 | CDI ---
Documentation Clarification Form Date: 10/16/2018 2:16:32 PM From: Rowan Neff RN, CCDS Admit Date: 10/15/2018 10:17:00 PM Patient Name: Epi Flores Visit Number: [id number] Discharge Date: ATTENTION: The Clinical Documentation Specialists (CDI) and [facility] Coding Staff appreciate your assistance in clarifying documentation. Please respond to the clarification below the line at the bottom and electronically sign. The CDI & [facility] Coding staff will review the response and follow-up if needed. Please note: Queries are made part of the Legal Health Record. If you have any questions, please contact the author of this message via ITS. Dr. Stephanie Trotter The patient presented with shortness of breath. 10/16/18 in your consultation abnormal troponin, not consistent with acute coronary syndrome, likely secondary to oxygen supply and demand mismatch with no evidence of NV and further clarification is needs. History/Risk Factors: COPD, Heart failure, Seizure Disorder, Closed head injury Mental capacity of , Former smoker Clinical Indicators: 77-year-old who present with progressively more short of breath throughout the day with increased respirations and increased sputum production. ECF found his oxygen saturation in the 60s with blue lips. He was placed on a nonrebreather. Lab findings: Troponin 0.012, 0.038, 0.031 Noted: normal ECHO last year EF 55-60 % Chest CX: Elevation of right diaphragm which may be related to atelectasis and effusion Vital Signs: 158/95 107 36 97.9 99 % BiPAP Treatment: Monitor O2 Sats (titrate) Pulmicort Inhalations Monitor Labs: CBC, Lytes, Troponin IV Vanco PTD In your professional opinion, can you please further clarify oxygen supply and demand mismatch: Type 2 NV due to oxygen supply and demand mismatch Other Acute ischemic heart disease Other, please specify No NV but evidence of mismatch. Unable to determine (Last Revision: May 2017) MTDD
[2018-10-16] MEDS ORDERED: ALBUTEROL NEBULIZED 2.5 MG/3 ML INHALATION PRN (17:59)
[2018-10-16] MEDS: ATORVASTATIN 20 MG TAB PO SCH (20:19)
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
[2018-10-16] MEDS: traZODone HCL 50 MG TAB PO SCH (20:20)
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
[2018-10-16] MEDS: methylPREDNISolone SOD SUCCI 40 MG/ML 1 ML VIAL IV SCH (23:07)
[2018-10-16] MEDS: CEFDINIR 300 MG CAP PO SCH (23:07)
[2018-10-16] MEDS: BUDESONIDE 1 MG/2 ML NEBU INHALATION SCH (23:39)
[2018-10-16] MEDS: IPRATROPIUM-ALBUTEROL 3 ML NEB INHALATION SCH ×2 (23:39→23:45)
[2018-10-17] MEDS: INSULIN ASPART (NovoLOG) 100 UNIT/ML VIAL SQ SCH ×4 (08:09→20:53)
[2018-10-17] MEDS: PANTOPRAZOLE 40 MG TABLET PO SCH (08:55)
[2018-10-17] MEDS: CEFDINIR 300 MG CAP PO SCH ×2 (08:55→20:53)
[2018-10-17] MEDS: FUROSEMIDE 40 MG TAB PO SCH (08:55)
[2018-10-17] MEDS: methylPREDNISolone SOD SUCCI 40 MG/ML 1 ML VIAL IV SCH ×3 (08:56→23:29)
[2018-10-17] MEDS ORDERED: PHENobarbital 32.4 MG TAB PO SCH (09:00)
[2018-10-17] MEDS: BUDESONIDE 1 MG/2 ML NEBU INHALATION SCH ×2 (09:20→19:45)
[2018-10-17] MEDS: IPRATROPIUM-ALBUTEROL 3 ML NEB INHALATION SCH ×6 (09:20→23:21)
[2018-10-17] MEDS: BUDESONIDE 0.5 MG/2 ML NEBU INHALATION SCH ×2 (09:21→19:46)
--- NOTE | 2018-10-17 11:45 | CDI ---
Documentation Clarification Form Date: 10/16/2018 2:16:00 PM From: Rowan Neff RN, CCDS Admit Date: 10/15/2018 10:17:00 PM Patient Name: Epi Flores Visit Number: [id number] Discharge Date: ATTENTION: The Clinical Documentation Specialists (CDI) and [facility] Coding Staff appreciate your assistance in clarifying documentation. Please respond to the clarification below the line at the bottom and electronically sign. The CDI & [facility] Coding staff will review the response and follow-up if needed. Please note: Queries are made part of the Legal Health Record. If you have any questions, please contact the author of this message via ITS. Dr. Stephanie Trotter The patient presented with shortness of breath. 10/16/18 in your consultation abnormal troponin, not consistent with acute coronary syndrome, likely secondary to oxygen supply and demand mismatch with no evidence of VT and further clarification is needs. History/Risk Factors: COPD, Heart failure, Seizure Disorder, Closed head injury, Mental capacity of infant, Former smoker Clinical Indicators: 77-year-old who present with progressively more short of breath throughout the day with increased respirations and increased sputum production. ECF found his oxygen saturation in the 60s with blue lips. He was placed on a nonrebreather. Lab findings: Troponin 0.012, 0.038, 0.031 Noted: normal ECHO last year EF 55-60 % Chest CX: Elevation of right diaphragm which may be related to atelectasis and effusion Vital Signs: 158/95 107 36 97.9 99 % BiPAP Treatment: Monitor O2 Sats (titrate) Pulmicort Inhalations Monitor Labs: CBC, Lytes, Troponin IV Vanco PTD In your professional opinion, can you please further clarify oxygen supply and demand mismatch: XXXX due to oxygen supply and demand mismatch Other Acute ischemic heart disease Other, please specify Unable to determine (Last Revision: May 2017) MTDD
[2018-10-17] MEDS: guaiFENesin 600 MG TABLET.ER PO SCH ×2 (12:17→20:53)
[2018-10-17 12:23] LABS: Glucose,Whole Blood 114 mg/dL (75-99)
[2018-10-17 17:29] LABS: Glucose,Whole Blood 107 mg/dL (75-99)
[2018-10-17 19:43] LABS: Glucose,Whole Blood 122 mg/dL (75-99)
[2018-10-17] MEDS: traZODone HCL 50 MG TAB PO SCH (20:53)
[2018-10-17] MEDS: ATORVASTATIN 20 MG TAB PO SCH (20:53)
[2018-10-17] MEDS: PHENobarbital 64.8 MG TAB PO SCH (20:53)
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
[2018-10-18] MEDS: IPRATROPIUM-ALBUTEROL 3 ML NEB INHALATION SCH ×6 (03:21→23:38)
[2018-10-18 07:12] LABS: Glucose,Whole Blood 121 mg/dL (75-99)
[2018-10-18] MEDS: INSULIN ASPART (NovoLOG) 100 UNIT/ML VIAL SQ SCH ×4 (07:33→20:29)
[2018-10-18] MEDS: guaiFENesin 600 MG TABLET.ER PO SCH ×2 (07:47→20:27)
[2018-10-18] MEDS: PHENobarbital 64.8 MG TAB PO SCH ×2 (07:47→20:27)
[2018-10-18] MEDS: FUROSEMIDE 40 MG TAB PO SCH (07:48)
[2018-10-18] MEDS: PANTOPRAZOLE 40 MG TABLET PO SCH (07:48)
[2018-10-18] MEDS: methylPREDNISolone SOD SUCCI 40 MG/ML 1 ML VIAL IV SCH ×2 (07:48→16:47)
[2018-10-18] MEDS: CEFDINIR 300 MG CAP PO SCH ×2 (07:48→20:27)
[2018-10-18] MEDS: BUDESONIDE 1 MG/2 ML NEBU INHALATION SCH ×2 (09:05→20:15)
[2018-10-18 10:31] LABS: Glucose,Whole Blood 143 mg/dL (75-99)
[2018-10-18 16:40] LABS: Glucose,Whole Blood 103 mg/dL (75-99)
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
[2018-10-18 20:10] LABS: Glucose,Whole Blood 124 mg/dL (75-99)
[2018-10-18] MEDS: traZODone HCL 50 MG TAB PO SCH (20:27)
[2018-10-18] MEDS: ATORVASTATIN 20 MG TAB PO SCH (20:27)
[2018-10-19] MEDS: methylPREDNISolone SOD SUCCI 40 MG/ML 1 ML VIAL IV SCH ×2 (00:01→07:51)
[2018-10-19] MEDS: IPRATROPIUM-ALBUTEROL 3 ML NEB INHALATION SCH ×4 (04:03→16:05)
[2018-10-19 07:25] LABS: Glucose,Whole Blood 111 mg/dL (75-99)
[2018-10-19] MEDS: BUDESONIDE 1 MG/2 ML NEBU INHALATION SCH (07:37)
[2018-10-19] MEDS: INSULIN ASPART (NovoLOG) 100 UNIT/ML VIAL SQ SCH ×2 (07:49→12:44)
[2018-10-19] MEDS: guaiFENesin 600 MG TABLET.ER PO SCH (07:51)
[2018-10-19] MEDS: FUROSEMIDE 40 MG TAB PO SCH (07:51)
[2018-10-19] MEDS: CEFDINIR 300 MG CAP PO SCH (07:52)
[2018-10-19] MEDS: PANTOPRAZOLE 40 MG TABLET PO SCH (07:54)
[2018-10-19] MEDS: PHENobarbital 64.8 MG TAB PO SCH (07:54)
[2018-10-19 12:02] LABS: Glucose,Whole Blood 84 mg/dL (75-99)
[2018-10-19 12:16] VITALS: RESP 17
[2018-10-19 13:43] VITALS: BP 120/66; PULSE 79; TEMP 97.8
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
--- NOTE | 2018-10-28 07:39 | CDI ---
Documentation Clarification Form Date: 10/16/2018 2:16:00 PM From: Rowan Neff RN, CCDS Admit Date: 10/15/2018 10:17:00 PM Patient Name: Epi Flores Visit Number: [id number] Discharge Date: 10/19/2018 4:12:00 PM ATTENTION: The Clinical Documentation Specialists (CDI) and [facility] Coding Staff appreciate your assistance in clarifying documentation. Please respond to the clarification below the line at the bottom and electronically sign. The CDI & [facility] Coding staff will review the response and follow-up if needed. Please note: Queries are made part of the Legal Health Record. If you have any questions, please contact the author of this message via ITS. Dr. Stephanie Trotter The patient presented with shortness of breath. 10/16/18 in your consultation abnormal troponin, not consistent with acute coronary syndrome, likely secondary to oxygen supply and demand mismatch with no evidence of OK and further clarification is needs. History/Risk Factors: COPD, Heart failure, Seizure Disorder, Closed head injury Mental capacity of infant, Former smoker Clinical Indicators: 77-year-old who present with progressively more short of breath throughout the day with increased respirations and increased sputum production. ECF found his oxygen saturation in the 60s with blue lips. He was placed on a nonrebreather. Lab findings: Troponin 0.012, 0.038, 0.031 Noted: normal ECHO last year EF 55-60 % Chest CX: Elevation of right diaphragm which may be related to atelectasis and effusion Vital Signs: 158/95 107 36 97.9 99 % BiPAP Treatment: Monitor O2 Sats (titrate) Pulmicort Inhalations Monitor Labs: CBC, Lytes, Troponin IV Vanco PTD In your professional opinion, can you please further clarify oxygen supply and demand mismatch: XXX Type 2 OK due to oxygen supply and demand mismatch Other Acute ischemic heart disease Other, please specify Unable to determine (Last Revision: May 2017) MTDD
== END 2018-10-19 16:12 | DRG 189 ==
LOC: EC 19:57 → 3SCARD 22:17 → 3NMEDONC 10-17 06:28
PROVIDERS: ADMIT Hospitalist; ATTEND Hospitalist
PROC: 5A09457 Assistance with Respiratory Ventilation, 24-96 Consecutive Hours, Continuous Positive Airway Pressure (ICD-10-PCS; principal; 2018-10-15)
DX: J96.21 Acute and chronic respiratory failure with hypoxia (principal); I21.A1 Myocardial infarction type 2; J44.0 Chronic obstructive pulmonary disease with (acute) lower respiratory infection; I50.32 Chronic diastolic (congestive) heart failure; J44.1 Chronic obstructive pulmonary disease with (acute) exacerbation; E78.5 Hyperlipidemia, unspecified; F03.90 Unspecified dementia, unspecified severity, without behavioral disturbance, psychotic disturbance, mood disturbance, and anxiety; F79 Unspecified intellectual disabilities; G40.909 Epilepsy, unspecified, not intractable, without status epilepticus; Z66 Do not resuscitate; K21.9 Gastro-esophageal reflux disease without esophagitis; R47.1 Dysarthria and anarthria; Z99.81 Dependence on supplemental oxygen; Z79.4 Long term (current) use of insulin; Z86.718 Personal history of other venous thrombosis and embolism; Z79.899 Other long term (current) drug therapy; Z87.891 Personal history of nicotine dependence; Z99.3 Dependence on wheelchair; Z99.89 Dependence on other enabling machines and devices; Z87.820 Personal history of traumatic brain injury
CPT/HCPCS: 36415; 51702; 71045; 80053; 80184; 81003; 83605; 83880; 84484; 85025; 85610; 85730; 87040; 93005; 94640; 94660; 96365; 96366; 96368; 96375; 99285

== ENCOUNTER 2018-11-08 10:33 | Emergency (ER) | payer MEDICARE ==
[2018-11-08 10:40] VITALS: RESP 18
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
[2018-11-08 12:06] LABS: Appearance,Urine Clear (Clear); Bacteria,Urine Rare /hpf; Bilirubin,Urine Negative (Negative); Blood,Urine Large (Negative); Color,Urine Yellow; Glucose,Urine (UA) Negative (Negative); Ketones,Urine Negative (Negative); Leukocyte Esterase,Urine Small (Negative); Mucus,Urine Rare /hpf; Nitrite,Urine Negative (Negative); Protein,Urine Negative (Negative); RBC,Urine >182 /hpf (0-5); Specific Gravity,Urine 1.013 (1.001-1.035); Squamous Epithelial Cell,Urine <1 /hpf (0-4); Urobilinogen,Urine <2.0 mg/dL (<2.0)
[2018-11-08 12:37] VITALS: BP 100/78; PULSE 98; TEMP 98
== END 2018-11-08 12:35 | disposition home or self-care (01) ==
LOC: EC 10:33
DX: R33.9 Retention of urine, unspecified (principal); J44.9 Chronic obstructive pulmonary disease, unspecified; I50.9 Heart failure, unspecified; E78.5 Hyperlipidemia, unspecified; K21.9 Gastro-esophageal reflux disease without esophagitis; G40.909 Epilepsy, unspecified, not intractable, without status epilepticus; Z87.891 Personal history of nicotine dependence; Z79.51 Long term (current) use of inhaled steroids; Z79.899 Other long term (current) drug therapy; Z99.3 Dependence on wheelchair
CPT/HCPCS: 51701; 81001; 99284

== ENCOUNTER 2018-11-13 12:03 | Emergency (ER) | payer OTHER, MEDICARE ==
[2018-11-13 12:24] VITALS: BP 106/61; PULSE 110; RESP 20; TEMP 97.9
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
== END 2018-11-13 13:41 | disposition home or self-care (01) ==
LOC: EC 12:03
DX: R33.9 Retention of urine, unspecified (principal); I50.9 Heart failure, unspecified; J44.9 Chronic obstructive pulmonary disease, unspecified; E78.5 Hyperlipidemia, unspecified; G40.909 Epilepsy, unspecified, not intractable, without status epilepticus; K21.9 Gastro-esophageal reflux disease without esophagitis; Z87.891 Personal history of nicotine dependence; Z79.51 Long term (current) use of inhaled steroids; Z79.899 Other long term (current) drug therapy
CPT/HCPCS: 99284

== ENCOUNTER 2019-01-03 19:44 | Inpatient (IN) | payer MEDICARE ==
[2019-01-03] MEDS ORDERED: ACETAMINOPHEN TAB 500 MG TAB PO STA (19:59)
[2019-01-03] MEDS ORDERED: IBUPROFEN 600 MG TAB PO STA (19:59)
[2019-01-03] MEDS ORDERED: SODIUM CHLORIDE 0.9% 1,000 ML IV STA (19:59)
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
[2019-01-03 21:21] LABS: Basophils # (A) 0.1 k/uL (0-0.2); Basophils % (A) 1 %; Eosinophils # (A) 0.2 k/uL (0-0.7); Eosinophils % (A) 1 %; HCT 38.5 % (39.0-53.0); Lymphocytes # (A) 2.1 k/uL (1.0-4.8); Lymphocytes % (A) 11 %; MCH 31.2 pg (25.0-35.0); MCHC 33.8 g/dL (31.0-37.0); MCV 92.3 fL (80.0-100.0); Mean Platelet Volume 7.7; Monocytes # (A) 1.2 k/uL (0-1.0); Monocytes % (A) 6 %; Neutrophils # (A) 16.4 k/uL (1.3-7.7); Neutrophils % (A) 81 %; Platelet Count 251 k/uL (150-450); RBC 4.17 m/uL (4.30-5.90); WBC 20.2 k/uL (3.8-10.6)
--- NOTE | 2019-01-03 21:51 | XR ---
EXAMINATION TYPE: XR chest 2V DATE OF EXAM: 01/03/2019 COMPARISON: 10/15/2018 HISTORY: Fever TECHNIQUE: Frontal and lateral views of the chest are obtained. FINDINGS: There is some patchy atelectasis right lung base. There is mild blunting right costophreni c angle. There is no heart failure. Heart size is normal. IMPRESSION: There is infiltrate and atelectasis right lung base with pleural fluid not significantly different than last exam. No heart failure.
[2019-01-03 22:26] LABS: ALT 30 U/L (21-72); AST 21 U/L (17-59); African American GFR (CKD) >90 (>60 ml/min/1.73 sqM); Albumin 3.3 g/dL (3.5-5.0); Alkaline Phosphatase 72 U/L (38-126); Anion Gap 8 mmol/L; Blood Urea Nitrogen 12 mg/dL (9-20); Calcium 8.7 mg/dL (8.4-10.2); Carbon Dioxide 25 mmol/L (22-30); Chloride 101 mmol/L (98-107); Glucose 105 mg/dL (74-99); Non-African American GFR(CKD) 88 (>60 ml/min/1.73 sqM); Sodium 134 mmol/L (137-145); Total Bilirubin 0.5 mg/dL (0.2-1.3)
[2019-01-03 22:27] LABS: Appearance,Urine Cloudy (Clear); Bacteria,Urine Moderate /hpf; Bilirubin,Urine Negative (Negative); Blood,Urine Small (Negative); Color,Urine Yellow; Glucose,Urine (UA) Negative (Negative); Ketones,Urine Negative (Negative); Leukocyte Esterase,Urine Large (Negative); Mucus,Urine Many /hpf; Nitrite,Urine Negative (Negative); Protein,Urine 1+ (Negative); RBC,Urine 5 /hpf (0-5); Specific Gravity,Urine 1.023 (1.001-1.035); Squamous Epithelial Cell,Urine 3 /hpf (0-4); WBC,Urine >182 /hpf (0-5)
[2019-01-03] MEDS: SODIUM CHLORIDE 0.9% 500 ML 500 ML IV SCH (23:48)
[2019-01-04 00:34] VITALS: BMI 27.8
[2019-01-04] MEDS ORDERED: FUROSEMIDE 10 MG/ML 4 ML VIAL IV STA (02:02)
[2019-01-04] MEDS: SODIUM CHLORIDE 0.9% 500 ML 500 ML IV SCH (02:03)
[2019-01-04] MEDS: ENOXAPARIN 40 MG/0.4 ML SYRINGE SQ SCH (08:19)
[2019-01-04] MEDS ORDERED: LORATADINE 10 MG TAB PO PRN (11:03)
[2019-01-04] MEDS ORDERED: ACETAMINOPHEN TAB 325 MG TAB PO PRN (11:03)
[2019-01-04] MEDS ORDERED: DIPHENOX-ATROP 2.5-0.025 MG 1 EACH TAB PO PRN (11:03)
[2019-01-04] MEDS ORDERED: guaiFENesin-DM 100-10MG/5ML 10 ML CUP PO PRN (11:03)
[2019-01-04] MEDS ORDERED: diphenhydrAMINE 25 MG CAP PO PRN (11:03)
[2019-01-04] MEDS ORDERED: BISMUTH SUBSALICYLATE 4,192 MG/240 ML BOTTLE PO PRN (11:03)
[2019-01-04] MEDS: BUDESONIDE 0.5 MG/2 ML NEBU INHALATION SCH ×2 (12:07→21:22)
[2019-01-04] MEDS: ALBUTEROL NEBULIZED 2.5 MG/3 ML INHALATION SCH ×3 (12:07→21:22)
[2019-01-04] MEDS: FOLIC ACID 1 MG TAB PO SCH (12:34)
[2019-01-04] MEDS: PHENobarbital 64.8 MG TAB PO SCH ×2 (12:35→20:21)
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
[2019-01-04] MEDS: TAMSULOSIN 0.4 MG CAP.ER.24H PO SCH (20:21)
[2019-01-04] MEDS: traZODone HCL 50 MG TAB PO SCH (20:21)
[2019-01-04] MEDS: SENNOSIDES-DOCUSATE SODIUM 1 EACH TAB PO SCH (20:21)
[2019-01-04] MEDS: MONTELUKAST 10 MG TAB PO SCH (20:21)
[2019-01-04] MEDS: ATORVASTATIN 20 MG TAB PO SCH (20:21)
[2019-01-05] MEDS: BUDESONIDE 0.5 MG/2 ML NEBU INHALATION SCH ×2 (07:56→20:23)
[2019-01-05] MEDS: ALBUTEROL NEBULIZED 2.5 MG/3 ML INHALATION SCH ×3 (07:56→20:23)
[2019-01-05] MEDS: CYANOCOBALAMIN 500 MCG TAB PO SCH (08:31)
[2019-01-05] MEDS: FUROSEMIDE 40 MG TAB PO SCH (08:31)
[2019-01-05] MEDS: ENOXAPARIN 40 MG/0.4 ML SYRINGE SQ SCH (08:31)
[2019-01-05] MEDS: PANTOPRAZOLE 40 MG TABLET PO SCH (08:31)
[2019-01-05] MEDS: PHENobarbital 64.8 MG TAB PO SCH ×2 (08:31→20:55)
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
[2019-01-05] MEDS: FOLIC ACID 1 MG TAB PO SCH (11:51)
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
[2019-01-05] MEDS: SENNOSIDES-DOCUSATE SODIUM 1 EACH TAB PO SCH (20:55)
[2019-01-05] MEDS: traZODone HCL 50 MG TAB PO SCH (20:55)
[2019-01-05] MEDS: guaiFENesin 600 MG TABLET.ER PO SCH (20:55)
[2019-01-05] MEDS: ATORVASTATIN 20 MG TAB PO SCH (20:55)
[2019-01-05] MEDS: TAMSULOSIN 0.4 MG CAP.ER.24H PO SCH (20:55)
[2019-01-05] MEDS: MONTELUKAST 10 MG TAB PO SCH (20:55)
[2019-01-06] MEDS: CYANOCOBALAMIN 500 MCG TAB PO SCH (08:33)
[2019-01-06] MEDS: FUROSEMIDE 40 MG TAB PO SCH (08:33)
[2019-01-06] MEDS: PANTOPRAZOLE 40 MG TABLET PO SCH (08:34)
[2019-01-06] MEDS: PHENobarbital 64.8 MG TAB PO SCH (08:34)
[2019-01-06] MEDS: guaiFENesin 600 MG TABLET.ER PO SCH (08:35)
[2019-01-06] MEDS: ENOXAPARIN 40 MG/0.4 ML SYRINGE SQ SCH (08:35)
[2019-01-06] MEDS: ALBUTEROL NEBULIZED 2.5 MG/3 ML INHALATION SCH ×2 (08:50→12:15)
[2019-01-06] MEDS: BUDESONIDE 0.5 MG/2 ML NEBU INHALATION SCH (08:50)
[2019-01-06] MEDS: FOLIC ACID 1 MG TAB PO SCH (12:28)
[2019-01-06 12:44] VITALS: BP 120/73; PULSE 77; RESP 17; TEMP 98.3
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
== END 2019-01-06 16:30 | disposition home or self-care (01) | DRG 699 ==
LOC: EC 19:44 → 3NMEDONC 23:11
PROVIDERS: ADMIT Hospitalist; ATTEND Hospitalist
DX: T83.511A Infection and inflammatory reaction due to indwelling urethral catheter, initial encounter (principal); N30.00 Acute cystitis without hematuria; J44.0 Chronic obstructive pulmonary disease with (acute) lower respiratory infection; J96.11 Chronic respiratory failure with hypoxia; I50.32 Chronic diastolic (congestive) heart failure; J20.9 Acute bronchitis, unspecified; J98.6 Disorders of diaphragm; G40.909 Epilepsy, unspecified, not intractable, without status epilepticus; E78.5 Hyperlipidemia, unspecified; F79 Unspecified intellectual disabilities; K21.9 Gastro-esophageal reflux disease without esophagitis; R53.81 Other malaise; Z79.4 Long term (current) use of insulin; Z79.899 Other long term (current) drug therapy; Z79.52 Long term (current) use of systemic steroids; Z87.891 Personal history of nicotine dependence; Z99.3 Dependence on wheelchair; Z99.81 Dependence on supplemental oxygen; Z87.820 Personal history of traumatic brain injury; Y84.6 Urinary catheterization as the cause of abnormal reaction of the patient, or of later complication, without mention of misadventure at the time of the procedure
CPT/HCPCS: 36415; 71046; 80053; 81001; 83605; 85025; 87040; 87086; 87502; 93005; 94640; 94667; 96361; 96365; 99285

== ENCOUNTER 2019-01-24 19:39 | Inpatient (IN) | payer MEDICARE ==
[2019-01-24] MEDS ORDERED: SODIUM CHLORIDE 0.9% 500 ML 500 ML IV STA ×2 (20:07→22:44)
[2019-01-24 20:55] LABS: Appearance,Urine Cloudy (Clear); Bacteria,Urine Rare /hpf; Bilirubin,Urine Negative (Negative); Blood,Urine Moderate (Negative); Calcium Oxalate Crystals,Urine Few /hpf; Color,Urine Yellow; Glucose,Urine (UA) Negative (Negative); Ketones,Urine Negative (Negative); Leukocyte Esterase,Urine Large (Negative); Mucus,Urine Moderate /hpf; Nitrite,Urine Positive (Negative); PH, Urine 6.5 (5.0-8.0); Protein,Urine 2+ (Negative); RBC,Urine 54 /hpf (0-5); Specific Gravity,Urine 1.023 (1.001-1.035); Squamous Epithelial Cell,Urine <1 /hpf (0-4); Urobilinogen,Urine <2.0 mg/dL (<2.0)
--- NOTE | 2019-01-24 21:26 | XR ---
EXAMINATION TYPE: XR chest 2V DATE OF EXAM: 01/24/2019 COMPARISON: Chest x-ray 01/03/2019 HISTORY: Fever TECHNIQUE: Frontal and lateral views of the chest are obtained. FINDINGS: Cardiomediastinal silhouette is stable. No pulmonary vascular congestion. Streak-like by b asilar opacities may represent scarring or atelectasis, also present previously. No sizable pleural e ffusion or pneumothorax. Osseous structures are intact. IMPRESSION: 1. Streak-like bibasilar opacities are redemonstrated and favored to represent atelectasis or scar. 2. No findings of fluid overload.
[2019-01-24 21:43] LABS: Basophils % (A) 0 %; Eosinophils # (A) 0.3 k/uL (0-0.7); Eosinophils % (A) 2 %; HCT 44.3 % (39.0-53.0); HGB 14.2 gm/dL (13.0-17.5); Hypochromasia Moderate; Lymphocytes % (A) 14 %; MCH 31.1 pg (25.0-35.0); Mean Platelet Volume 8.7; Monocytes # (A) 0.8 k/uL (0-1.0); Monocytes % (A) 6 %; Neutrophils % (A) 77 %; Platelet Count 195 k/uL (150-450); RBC 4.55 m/uL (4.30-5.90); RDW 12.9 % (11.5-15.5); WBC 14.2 k/uL (3.8-10.6)
[2019-01-24 21:52] LABS: ALT 14 U/L (21-72); AST 24 U/L (17-59); African American GFR (CKD) >90 (>60 ml/min/1.73 sqM); Alkaline Phosphatase 77 U/L (38-126); Anion Gap 9 mmol/L; Blood Urea Nitrogen 17 mg/dL (9-20); Calcium 9.2 mg/dL (8.4-10.2); Carbon Dioxide 26 mmol/L (22-30); Chloride 107 mmol/L (98-107); Glucose 115 mg/dL (74-99); Non-African American GFR(CKD) >90 (>60 ml/min/1.73 sqM); Sodium 142 mmol/L (137-145); Total Bilirubin 0.6 mg/dL (0.2-1.3); Total Protein 7.1 g/dL (6.3-8.2)
[2019-01-24 21:54] LABS: MCV 97.3 fL (80.0-100.0)
[2019-01-24 21:55] LABS: Potassium 4.4 mmol/L (3.5-5.1)
[2019-01-24] MEDS ORDERED: NALOXONE 0.4 MG/ML 1 ML VIAL IV PRN (22:46)
[2019-01-24] MEDS ORDERED: ACETAMINOPHEN TAB 325 MG TAB PO PRN (22:46)
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
[2019-01-24] MEDS: SODIUM CHLORIDE 0.9% 1,000 ML IV SCH (23:45)
[2019-01-25] MEDS ORDERED: DIPHENOX-ATROP 2.5-0.025 MG 1 EACH TAB PO PRN (03:14)
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
[2019-01-25] MEDS: BUDESONIDE 0.5 MG/2 ML NEBU INHALATION SCH ×2 (07:37→19:49)
[2019-01-25] MEDS: ALBUTEROL NEBULIZED 2.5 MG/3 ML INHALATION SCH ×3 (07:37→19:49)
[2019-01-25] MEDS: PHENobarbital 64.8 MG TAB PO SCH ×2 (10:30→20:45)
[2019-01-25] MEDS: FUROSEMIDE 40 MG TAB PO SCH (10:30)
[2019-01-25] MEDS: PANTOPRAZOLE 40 MG TABLET PO SCH (10:31)
[2019-01-25] MEDS: FOLIC ACID 1 MG TAB PO SCH (10:31)
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
[2019-01-25 11:04] LABS: HCT 41.6 % (39.0-53.0); HGB 13.2 gm/dL (13.0-17.5); MCHC 31.7 g/dL (31.0-37.0); MCV 94.4 fL (80.0-100.0); Mean Platelet Volume 7.6; Platelet Count 227 k/uL (150-450); RDW 13.2 % (11.5-15.5); WBC 10.8 k/uL (3.8-10.6)
[2019-01-25 11:09] LABS: African American GFR (CKD) >90 (>60 ml/min/1.73 sqM); Anion Gap 7 mmol/L; Blood Urea Nitrogen 14 mg/dL (9-20); Calcium 8.6 mg/dL (8.4-10.2); Carbon Dioxide 29 mmol/L (22-30); Chloride 106 mmol/L (98-107); Glucose 98 mg/dL (74-99); Non-African American GFR(CKD) >90 (>60 ml/min/1.73 sqM); Potassium 3.9 mmol/L (3.5-5.1); Sodium 142 mmol/L (137-145)
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
[2019-01-25] MEDS: ATORVASTATIN 20 MG TAB PO SCH (20:45)
[2019-01-25] MEDS: traZODone HCL 50 MG TAB PO SCH (20:45)
[2019-01-25] MEDS: SENNOSIDES-DOCUSATE SODIUM 1 EACH TAB PO SCH (20:45)
[2019-01-25] MEDS: MONTELUKAST 10 MG TAB PO SCH (20:45)
[2019-01-25] MEDS: TAMSULOSIN 0.4 MG CAP.ER.24H PO SCH (20:45)
[2019-01-25] MEDS: SODIUM CHLORIDE 0.9% 1,000 ML IV SCH ×2 (20:45→20:50)
[2019-01-25] MEDS: guaiFENesin 600 MG TABLET.ER PO SCH (20:50)
[2019-01-26] MEDS: SODIUM CHLORIDE 0.9% 1,000 ML IV SCH (04:15)
[2019-01-26 06:54] LABS: HCT 38.5 % (39.0-53.0); HGB 12.3 gm/dL (13.0-17.5); MCH 29.9 pg (25.0-35.0); MCHC 31.8 g/dL (31.0-37.0); MCV 93.9 fL (80.0-100.0); Mean Platelet Volume 7.6; Platelet Count 222 k/uL (150-450); RDW 13.1 % (11.5-15.5); WBC 8.4 k/uL (3.8-10.6)
[2019-01-26] MEDS: BUDESONIDE 0.5 MG/2 ML NEBU INHALATION SCH ×2 (08:23→20:33)
[2019-01-26] MEDS: ALBUTEROL NEBULIZED 2.5 MG/3 ML INHALATION SCH ×3 (08:23→20:33)
[2019-01-26] MEDS: guaiFENesin 600 MG TABLET.ER PO SCH ×2 (08:26→20:22)
[2019-01-26] MEDS: PHENobarbital 64.8 MG TAB PO SCH ×2 (08:27→20:23)
[2019-01-26] MEDS: PANTOPRAZOLE 40 MG TABLET PO SCH (08:27)
[2019-01-26] MEDS: FUROSEMIDE 40 MG TAB PO SCH (08:27)
[2019-01-26] MEDS: FOLIC ACID 1 MG TAB PO SCH (11:54)
[2019-01-26 13:30] VITALS: BMI 29.9
[2019-01-26] MEDS: DEXTROSE 5%-0.45% NACL 1,000 ML IV SCH (13:47)
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
[2019-01-26] MEDS: MONTELUKAST 10 MG TAB PO SCH (20:23)
[2019-01-26] MEDS: TAMSULOSIN 0.4 MG CAP.ER.24H PO SCH (20:24)
[2019-01-26] MEDS: ATORVASTATIN 20 MG TAB PO SCH (20:24)
[2019-01-26] MEDS: traZODone HCL 50 MG TAB PO SCH (20:24)
[2019-01-26] MEDS: SENNOSIDES-DOCUSATE SODIUM 1 EACH TAB PO SCH (20:24)
--- NOTE | 2019-01-26 21:02 | P.PN ---
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 He typically sees Dr. Juarez. He presented from his assisted living secondary to fevers for 2 days. In the ER he underwent an extensive evaluation. His vital signs were normal on arrival. Laboratory analysis showed white blood cell count of 14, lactic acid 2.1, negative for influenza, and urinalysis appeared consistent with urinary tract infection. He was given IV fluids and started on Rocephin. He was admitted for further care of his urinary tract infection with impending sepsis. He was seen by urology who recommended voiding trial once urinary tract infection has improved. They're unable to perform a voiding trial at his adult foster care and therefore this will need to be done in the urology office. On the morning of 01/26 he was noted to have some choking episodes. He was seen by speech and failed his swallow study. Patient seen and examined at bedside with caregiver present. She reports a significant choking episode today, states that he has had these choking episodes in the past elevated typically do one-on-one hand-assisted feeding with the patient at all times to decrease his aspiration risk. Patient states that he is feeling fine today. Objective - Vital Signs Vital signs: Vital Signs Temp 97.6 F 01/26/19 13:46 Pulse 79 01/26/19 20:50 Resp 18 01/26/19 13:46 BP 116/79 01/26/19 13:46 Pulse Ox 96 01/26/19 20:35 Intake & Output 01/26/19 01/26/19 01/27/19 06:59 18:59 06:59 Intake Total 1190 Output Total 1000 Balance 1190 -1000 Weight 89.358 kg Intake: Intake, IV Titration 600 Amount Sodium Chloride 0.9% 1, 600 000 ml @ 75 mls/hr IV . [id number] [facility] Rx#:[id number] Oral 590 Output: Urine 1000 Other: Voiding Method Indwelling Catheter Indwelling Catheter Indwelling Catheter # Bowel Movements 1 - Exam General: non toxic, no distress, appears at stated age Derm: warm, dry Head: atraumatic, normocephalic, symmetric Eyes: EOMI, no lid lag, anicteric sclera Mouth: no lip lesion, mucus membranes moist Cardiovascular: S1S2 reg, no murmur, positive posterior tibial pulse bilateral, Lungs: CTA bilateral, no rhonchi, no rales , no accessory muscle use Abdominal: soft, nontender to palpation, no guarding, no appreciable organomegaly, Pelletier in place draining clear urine Ext: no gross muscle atrophy, no edema, no contractures Neuro: CN II-XI grossly intact, no focal neuro deficits Psych: Alert, oriented to self and situation, pleasant, appropriate affect - Labs CBC & Chem 7: 01/26/19 06:18 01/25/19 10:45 Labs: Abnormal Lab Results - Last 24 Hours (Table) 01/26/19 Range/Units 06:18 RBC 4.10 L (4.30-5.90) m/uL Hgb 12.3 L (13.0-17.5) gm/dL Hct 38.5 L (39.0-53.0) % Microbiology - Last 24 Hours (Table) 01/24/19 21:30 Blood Culture - Preliminary Blood No Growth after 24 hours Assessment and Plan Assessment: Urinary tract infection secondary to indwelling Pelletier catheter -This does appear to be a true urinary tract infection with elevated white blood cell count, fevers, elevated lactic acid -Continue with IV fluids, Rocephin -Await urine culture -Urology recommendations appreciated: Will need outpatient voiding trial -Continue Flomax Significant dysphagia -Patient had a modified barium swallow study and after discussion with speech had aspiration on thin and thick liquids we will as with all solids. We will treat the urinary tract infection for the next 24-48 hours and then reevaluate his swallow and hope to avoid PEG tube. At the assisted living home he is already having one-to-one hand-assisted feedings which has been shown to significantly decreased aspiration risks. PEG tube still can be associated with aspiration risks. Chronic constipation that has been well controlled -Continue with senna Seasonal ALLERGIES -Continue Claritin and Singulair COPD without exacerbation - singulair - pulmicor - prn albuterol GERD - PPI Dyslipidemia - liptior Seizure disorder - phenobarbital DVT prophylaxis: SCDs Discussed with:, Nursing, assisted living staff, speech therapy Anticipated discharge: 1- [address]: return to home A total of 35 minutes was spent on the care of this complex patient more than 50% of the time was spent in counseling and care coordination.
[2019-01-27] MEDS: DEXTROSE 5%-0.45% NACL 1,000 ML IV SCH ×2 (05:18→17:39)
[2019-01-27 07:41] LABS: HCT 40.6 % (39.0-53.0); HGB 12.7 gm/dL (13.0-17.5); MCH 29.2 pg (25.0-35.0); MCHC 31.3 g/dL (31.0-37.0); MCV 93.4 fL (80.0-100.0); Mean Platelet Volume 7.4; Platelet Count 261 k/uL (150-450); RBC 4.35 m/uL (4.30-5.90); WBC 8.8 k/uL (3.8-10.6)
[2019-01-27] MEDS: ALBUTEROL NEBULIZED 2.5 MG/3 ML INHALATION SCH ×3 (07:55→20:55)
[2019-01-27] MEDS: BUDESONIDE 0.5 MG/2 ML NEBU INHALATION SCH ×2 (07:55→20:55)
[2019-01-27 07:58] LABS: African American GFR (CKD) >90 (>60 ml/min/1.73 sqM); Anion Gap 7 mmol/L; Blood Urea Nitrogen 7 mg/dL (9-20); Calcium 9.2 mg/dL (8.4-10.2); Carbon Dioxide 28 mmol/L (22-30); Chloride 107 mmol/L (98-107); Glucose 102 mg/dL (74-99); Non-African American GFR(CKD) >90 (>60 ml/min/1.73 sqM); Potassium 4.1 mmol/L (3.5-5.1); Sodium 142 mmol/L (137-145)
[2019-01-27] MEDS: PANTOPRAZOLE 40 MG TABLET PO SCH ×2 (10:05→10:49)
[2019-01-27] MEDS: PHENobarbital 64.8 MG TAB PO SCH ×3 (10:05→20:52)
[2019-01-27] MEDS: guaiFENesin 600 MG TABLET.ER PO SCH ×3 (10:05→20:52)
[2019-01-27] MEDS: FUROSEMIDE 40 MG TAB PO SCH ×2 (10:05→10:49)
[2019-01-27] MEDS ORDERED: VANCOMYCIN IV PER PHARMACY 1 EACH MISC MISCELLANE PRN (10:25)
[2019-01-27] MEDS: FOLIC ACID 1 MG TAB PO SCH (12:29)
[2019-01-27] MEDS: VANCOMYCIN 1,500 MG in SODIUM CHLORIDE 0.9% 250 ML IVPB SCH ×2 (12:29→22:55)
--- NOTE | 2019-01-27 15:42 | CDI ---
Documentation Clarification Form Date: 01/27/2019 3:18:59 PM From: Rowan Neff RN, CCDS Admit Date: 01/24/2019 10:22:00 PM Patient Name: Epi Flores Visit Number: [id number] Discharge Date: ATTENTION: The Clinical Documentation Specialists (CDI) and [facility] Coding Staff appreciate your assistance in clarifying documentation. Please respond to the clarification below the line at the bottom and electronically sign. The CDI & [facility] Coding staff will review the response and follow-up if needed. Please note: Queries are made part of the Legal Health Record. If you have any questions, please contact the author of this message via ITS. Dr. Greg Craig The diagnosis severe sepsis was documented in the History and Physical but is not noted in subsequent documentation. 01/25/19 H&P: (Dr. Arzola) Severe sepsis secondary to UTI. Admit for evaluation of sepsis secondary to UTI History/Risk Factors: Traumatic brain injury, with limited mental capacity, Chronic indwelling Pelletier catheter, Clinical Indicators: 78-year-old male present from [facility] for fever earlier today. The patient's dispensing and measuring optician had reported changes in the color of his urine. The patient recently had a Pelletier placed. Labs in the emergency room: WBC 14.2, UA consistent with a UTI, Lactic acid 2.1 Urine culture: Methicillin resist S. aureus (final) Vital Signs on 01/24/19@19:40 122/85 89 20 97.5 (AX) Treatment: Rocephin IV Follow up Urine and blood cultures Monitor CBS, lactic acid, Vancomycin IV Flomax .4 mg PO IV Fluids Please clarify if the Sepsis was: Present/active this admission Treated and resolved this admission Ruled out Other, please specify Clinically unable to determine (Last Query Form Revision: October 2018) No sepsis MTDD
[2019-01-27] MEDS: SENNOSIDES-DOCUSATE SODIUM 1 EACH TAB PO SCH (20:52)
[2019-01-27] MEDS: MONTELUKAST 10 MG TAB PO SCH (20:52)
[2019-01-27] MEDS: traZODone HCL 50 MG TAB PO SCH (20:53)
[2019-01-27] MEDS: ATORVASTATIN 20 MG TAB PO SCH (20:53)
[2019-01-27] MEDS: TAMSULOSIN 0.4 MG CAP.ER.24H PO SCH (20:53)
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
[2019-01-28 08:36] VITALS: BP 144/84; RESP 19; TEMP 99.4
[2019-01-28] MEDS: PHENobarbital 64.8 MG TAB PO SCH (09:11)
[2019-01-28] MEDS: guaiFENesin 600 MG TABLET.ER PO SCH (09:11)
[2019-01-28] MEDS: PANTOPRAZOLE 40 MG TABLET PO SCH (09:11)
[2019-01-28] MEDS: FUROSEMIDE 40 MG TAB PO SCH (09:11)
[2019-01-28] MEDS: DEXTROSE 5%-0.45% NACL 1,000 ML IV SCH (09:22)
[2019-01-28] MEDS: ALBUTEROL NEBULIZED 2.5 MG/3 ML INHALATION SCH (09:43)
[2019-01-28] MEDS: BUDESONIDE 0.5 MG/2 ML NEBU INHALATION SCH (09:43)
[2019-01-28 09:59] VITALS: PULSE 80
[2019-01-28] MEDS: VANCOMYCIN 1,500 MG in SODIUM CHLORIDE 0.9% 250 ML IVPB SCH (10:10)
[2019-01-28] MEDS: FOLIC ACID 1 MG TAB PO SCH (11:48)
[2019-01-29] MEDS ORDERED: VANCOMYCIN TROUGH DUE 1 EACH MISC MISCELLANE ONE (08:00)
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
[2019-02-18] MEDS ORDERED: ERGOCALCIFEROL 50,000 UNIT CAP PO SCH (09:00)
== END 2019-01-28 13:44 | disposition home or self-care (01) | DRG 698 ==
LOC: EC 19:39 → 4SSUR 22:22
PROVIDERS: ADMIT Hospitalist; ATTEND Hospitalist
DX: T83.511A Infection and inflammatory reaction due to indwelling urethral catheter, initial encounter (principal); A41.9 Sepsis, unspecified organism; R65.20 Severe sepsis without septic shock; E87.2 Acidosis; J96.11 Chronic respiratory failure with hypoxia; Y73.8 Miscellaneous gastroenterology and urology devices associated with adverse incidents, not elsewhere classified; E78.5 Hyperlipidemia, unspecified; F79 Unspecified intellectual disabilities; G40.909 Epilepsy, unspecified, not intractable, without status epilepticus; J30.2 Other seasonal allergic rhinitis; K21.9 Gastro-esophageal reflux disease without esophagitis; K59.09 Other constipation; N30.90 Cystitis, unspecified without hematuria; R13.10 Dysphagia, unspecified; R19.7 Diarrhea, unspecified; R33.9 Retention of urine, unspecified; R47.1 Dysarthria and anarthria; Z87.820 Personal history of traumatic brain injury; Y84.6 Urinary catheterization as the cause of abnormal reaction of the patient, or of later complication, without mention of misadventure at the time of the procedure; Z79.899 Other long term (current) drug therapy; Z99.3 Dependence on wheelchair; Z99.81 Dependence on supplemental oxygen
CPT/HCPCS: 36415; 51702; 71046; 74230; 80048; 80053; 81001; 83605; 85025; 85027; 87040; 87077; 87086; 87186; 87502; 94640; 94760; 96361; 96365; 99285